=== PATIENT | male | born 1990 | race Asian ===

== ENCOUNTER 2018-06-22 18:20 | Emergency (ER) | payer OTHER ==
[~2018-06-22] VITALS: Ht 182.9 cm; Wt 62.0 kg
[2018-06-22 18:22] VITALS: BP 122/78
== END 2018-06-22 20:06 | disposition home or self-care (01) ==
LOC: ED 19:45
DX: S43.101A Unspecified dislocation of right acromioclavicular joint, initial encounter (principal); F17.210 Nicotine dependence, cigarettes, uncomplicated; W19.XXXA Unspecified fall, initial encounter; Y93.23 Activity, snow (alpine) (downhill) skiing, snowboarding, sledding, tobogganing and snow tubing; Y92.89 Other specified places as the place of occurrence of the external cause; Y99.8 Other external cause status
CPT/HCPCS: 99283